=== PATIENT | male | born 1980 | race Caucasian/White ===

== ENCOUNTER 2016-06-20 07:32 | Emergency (ER) | payer OTHER ==
--- NOTE | 2016-06-20 07:41 | UCPHY ---
H & P Time Seen by Provider: 06/20/16 07:45 Patient Type: Established HPI/ROS: A 35-year-old male presents complaining of left eye redness and irritation, a scratchy feeling. Patient has had a recent sore throat however denies fevers or chills at this time. Review of systems As per HPI General no fever no chills no weakness HEENT no eye pain positive eye discharge. 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 Smoking Status: Current some day smoker Physical Exam: 35-year-old male Alert and oriented in no acute distress nontoxic appearance, afebrile Atraumatic normocephalic Left eye-diffuse conjunctival erythema, purulent drainage crusting eyelids Pupil round, reactive, to light Extraocular muscles intact Fluorescein negative uptake negative pooling, negative dendritic lesions Right eye normal Neck no JVD Lungs clear to auscultation, no respiratory distress Heart regular rate and rhythm Extremities no cyanosis clubbing edema Constitutional: Initial Vital Signs Temperature (C) 36.7 C 06/20/16 07:42 Heart Rate 70 06/20/16 07:42 Respiratory Rate 16 06/20/16 07:42 Blood Pressure 122/82 H 06/20/16 07:42 O2 Sat (%) 98 06/20/16 07:42 O2 Delivery Mode Room Air Allergies/Adverse Reactions: No Known Allergies Allergy (Verified 06/20/16 07:43) Home Medications: Medication Instructions Recorded Tobramycin 0.3% [Tobrex 0.3% opht 2 drops OP Q4 #1 opht.btl 06/20/16 drops (*)] Medical Decision Making ED Course/Re-evaluation: Patient seen and evaluated for left eye redness. Fluorescein negative for abrasion negative for dendritic lesions Impression Left eye conjunctivitis Plan Tobramycin ophthalmic drops 2 drops four times daily x7 days Warm compresses Given education regarding conjunctivitis Differential Diagnosis: Corneal abrasion, allergic, viral, bacterial conjunctivitis Departure - Departure Disposition: Home, Routine, Self-Care Clinical Impression: Conjunctivitis Condition: Good Instructions: Conjunctivitis (ED) Referrals: [facility] [Provider Group] - As per Instructions Prescriptions: Tobramycin 0.3% [Tobrex 0.3% opht drops (*)] 2 drops OP Q4 #1 opht.btl - PQRS PQRS Measurement: Not applicable
[2016-06-20 07:43] VITALS: BP 122/82; PULSE 70; RESP 16; TEMP 98.1; O2SAT 98
== END 2016-06-20 08:00 | disposition home or self-care (01) ==
LOC: CED 07:32
DX: H10.9 Unspecified conjunctivitis (principal); F17.210 Nicotine dependence, cigarettes, uncomplicated
CPT/HCPCS: 99214-PO; G0463-PO